=== PATIENT | male | born 1955 | race Caucasian/White ===

== ENCOUNTER 2018-08-14 11:38 | Emergency (ER) | payer MEDICAID ==
[~2018-08-14] VITALS: Ht 170.2 cm; Wt 73.0 kg
[2018-08-14 12:05] VITALS: BP 114/79
== END 2018-08-14 13:04 | disposition left against medical advice (07) ==
LOC: ER 11:38
DX: Z53.21 Procedure and treatment not carried out due to patient leaving prior to being seen by health care provider (principal); R07.9 Chest pain, unspecified
CPT/HCPCS: 93005

== ENCOUNTER 2021-03-18 11:47 | Inpatient (IN) | payer MEDICAID, OTHER ==
[~2021-03-18] VITALS: Ht 165.1 cm; Wt 72.6 kg
[2021-03-18] MEDS ORDERED: PANTOPRAZOLE 80 MG in SODIUM CHLORIDE 0.9% 100 ML IV STA (12:05)
[2021-03-18] MEDS ORDERED: PANTOPRAZOLE SODIUM 40 MG/VIAL IV STA (12:05)
[2021-03-18] MEDS ORDERED: SODIUM CHLORIDE 0.9% 1000ML BAG (SEPSIS BOLUS) IV ONE (12:15)
[2021-03-18] MEDS ORDERED: ONDANSETRON HCL 4MG/2ML INJ IV ONE (12:30)
[2021-03-18 12:54] LABS: BASOPHILS % 0.7 % (0.0-2.0); HEMATOCRIT. 26.6 % (42.0-52.0); LYMPHOCYTES % 11.9 % (20.0-50.0); MEAN CORPUSCULAR HEMOGLOBIN 31.2 pg (28.0-32.0); MEAN CORPUSCULAR VOLUME 92.6 fL (80.0-94.0); MONOCYTES % 5.6 % (2.0-8.0); NEUTROPHILS % 81.8 % (40.0-76.0); PLATELET 222 x1000/uL (130-400); RED BLOOD CELL COUNT 2.88 mill/uL (4.7-6.1); RED CELL DISTRIBUTION WIDTH 15.2 % (11.6-14.6)
[2021-03-18 12:56] LABS: CHLORIDE 113 mEq/L (98-107)
[2021-03-18 13:01] LABS: INR 1.1; PROTHROMBIN TIME 11.8 sec (9.6-11.0)
[2021-03-18] MEDS ORDERED: MORPHINE SULFATE 2 MG/ML CPJ (NOT FOR IM USE) IV ONE (13:15)
[2021-03-18] MEDS ORDERED: ONDANSETRON HCL 4MG/2ML INJ IV PRN (15:00)
[2021-03-18 15:30] VITALS: BP 116/70
[2021-03-18 16:00] VITALS: BP 116/70
[2021-03-18] MEDS ORDERED: INFLUENZA VACCINE 05/PF 0.5 ML SYRINGE IM ONE (18:00)
[2021-03-18] MEDS ORDERED: PNEUMOCOCCAL 23-VAL P-SAC VAC 0.5 ML IM ONE (18:00)
[2021-03-18] MEDS: METOCLOPRAMIDE HCL 10MG/2ML VIAL IV SCH (18:27)
[2021-03-18] MEDS: SODIUM CHLORIDE 0.9% 1,000 ML IV SCH (18:27)
[2021-03-18 20:00] VITALS: BP 102/66
[2021-03-18 20:50] LABS: HEMOGLOBIN 7.7 g/dL (14.0-18.0)
[2021-03-18 20:58] LABS: TOTAL IRON BINDING CAPACITY 316 ug/dL (250-450)
[2021-03-18 21:15] LABS: FERRITIN 11 ng/mL (22-322)
[2021-03-18 21:26] LABS: VITAMIN B12 SERUM 338 pg/mL (211-911)
[2021-03-18 22:00] VITALS: BP 96/42
[2021-03-18] MEDS: PANTOPRAZOLE SODIUM 40 MG/VIAL IV SCH (22:43)
[2021-03-18] MEDS: ACETAMINOPHEN 325MG TABLET PO PRN (22:44)
[2021-03-19] VITALS (18 sets, daily range): BP systolic 88–117; BP diastolic 46–71
[2021-03-19] MEDS: SODIUM CHLORIDE 0.9% 1,000 ML IV SCH ×2 (03:00→13:00)
[2021-03-19] MEDS ORDERED: ATOR-2 PO (06:59)
[2021-03-19] MEDS ORDERED: ASPI-1497 PO (06:59)
[2021-03-19] MEDS ORDERED: APIX5TAB PO (06:59)
[2021-03-19] MEDS ORDERED: DOXA4TAB3 PO (06:59)
[2021-03-19] MEDS: METOCLOPRAMIDE HCL 10MG/2ML VIAL IV SCH ×5 (07:59→23:25)
[2021-03-19 08:02] LABS: EOSINOPHILS % 1.1 % (0.0-5.0); HEMATOCRIT. 28.5 % (42.0-52.0); HEMOGLOBIN. 9.6 g/dL (14.0-18.0); LYMPHOCYTES % 22.3 % (20.0-50.0); MEAN CORPUSCULAR HEMOGLOBIN 30.8 pg (28.0-32.0); MEAN CORPUSCULAR VOLUME 91.5 fL (80.0-94.0); MEAN PLATELET VOLUME 7.5 fl (7.4-10.4); MONOCYTES % 10.5 % (2.0-8.0); NEUTROPHILS % 65.1 % (40.0-76.0); PLATELET 175 x1000/uL (130-400); RED BLOOD CELL COUNT 3.11 mill/uL (4.7-6.1); RED CELL DISTRIBUTION WIDTH 15.6 % (11.6-14.6)
[2021-03-19] MEDS: PANTOPRAZOLE SODIUM 40 MG/VIAL IV SCH ×2 (08:21→21:08)
[2021-03-19 08:22] LABS: CHLORIDE 113 mEq/L (98-107)
[2021-03-19] MEDS ORDERED: MIDAZOLAM HCL 5 MG/5 ML VIAL ONE ×2 (12:42→12:43)
[2021-03-19] MEDS ORDERED: FENTANYL CITRATE/PF 50MCG/ML 2ML VIAL ONE (12:42)
[2021-03-19] MEDS ORDERED: MIDAZOLAM HCL 2 MG/2 ML VIAL IV PRN (13:04)
[2021-03-19] MEDS ORDERED: DIAZEPAM 5 MG/ML 2ML CPJ IV PRN (13:07)
[2021-03-19] MEDS ORDERED: DIAZEPAM 5 MG/ML 2ML CPJ ONE (13:15)
[2021-03-19] MEDS: SUCRALFATE 1 G/10 ML UDC PO SCH ×2 (15:53→21:08)
[2021-03-19] MEDS: ACETAMINOPHEN 325MG TABLET PO PRN (23:32)
[2021-03-20] VITALS (10 sets, daily range): BP systolic 91–112; BP diastolic 45–71
[2021-03-20] MEDS: METOCLOPRAMIDE HCL 10MG/2ML VIAL IV SCH ×3 (06:01→16:57)
[2021-03-20] MEDS: SUCRALFATE 1 G/10 ML UDC PO SCH ×4 (06:01→21:04)
[2021-03-20] MEDS: PANTOPRAZOLE SODIUM 40 MG/VIAL IV SCH ×2 (08:04→21:05)
[2021-03-20 09:07] LABS: FOLATE HEMATOCRIT 23.8 % (37.5-51.0)
[2021-03-20] MEDS: ACETAMINOPHEN 325MG TABLET PO PRN (10:25)
[2021-03-20 14:50] LABS: BASOPHILS % 0.7 % (0.0-2.0); EOSINOPHILS % 1.1 % (0.0-5.0); HEMATOCRIT. 27.5 % (42.0-52.0); HEMOGLOBIN. 9.7 g/dL (14.0-18.0); LYMPHOCYTES % 19.2 % (20.0-50.0); MEAN PLATELET VOLUME 7.3 fl (7.4-10.4); MONOCYTES % 8.3 % (2.0-8.0); NEUTROPHILS % 70.7 % (40.0-76.0); PLATELET 178 x1000/uL (130-400); RED BLOOD CELL COUNT 3.02 mill/uL (4.7-6.1); RED CELL DISTRIBUTION WIDTH 15.1 % (11.6-14.6)
[2021-03-20 17:06] LABS: FOLATE RBC 1672 ng/mL (>498)
[2021-03-21] VITALS: BP 105/68
[2021-03-21] MEDS: METOCLOPRAMIDE HCL 10MG/2ML VIAL IV SCH ×2 (00:23→05:28)
[2021-03-21 04:00] VITALS: BP 92/50
[2021-03-21] MEDS: ACETAMINOPHEN 325MG TABLET PO PRN (05:28)
[2021-03-21 06:00] VITALS: BP 108/71
[2021-03-21] MEDS: SUCRALFATE 1 G/10 ML UDC PO SCH (06:31)
[2021-03-21 08:00] VITALS: BP 111/68
[2021-03-21] MEDS: PANTOPRAZOLE SODIUM 40 MG/VIAL IV SCH (08:25)
[2021-03-21 09:47] VITALS: BP 111/68
== END 2021-03-21 11:06 | disposition home or self-care (01) | DRG 241 ==
LOC: ER 11:47 → EDBEDREQTM 13:02 → 3WST 13:51 → EDBEDREQTM 13:54 → EDBEDREQ 13:54 → ENRESERV 14:44
PROVIDERS: ADMIT Internal Medicine; ATTEND Internal Medicine
PROC: 30233N1 Transfusion of Nonautologous Red Blood Cells into Peripheral Vein, Percutaneous Approach (ICD-10-PCS; principal; 2021-03-19)
PROC: 0DB78ZX Excision of Stomach, Pylorus, Via Natural or Artificial Opening Endoscopic, Diagnostic (ICD-10-PCS; 2021-03-19)
DX: K29.71 Gastritis, unspecified, with bleeding (principal); E44.0 Moderate protein-calorie malnutrition; E87.8 Other disorders of electrolyte and fluid balance, not elsewhere classified; K25.4 Chronic or unspecified gastric ulcer with hemorrhage; E78.00 Pure hypercholesterolemia, unspecified; E78.5 Hyperlipidemia, unspecified; I10 Essential (primary) hypertension; D64.9 Anemia, unspecified; I25.10 Atherosclerotic heart disease of native coronary artery without angina pectoris; Z20.822 Contact with and (suspected) exposure to COVID-19; N40.0 Benign prostatic hyperplasia without lower urinary tract symptoms; Z86.718 Personal history of other venous thrombosis and embolism; Z95.0 Presence of cardiac pacemaker; Z68.26 Body mass index [BMI] 26.0-26.9, adult
CPT/HCPCS: 36415; 71045; 74176; 80048; 80053; 82607; 82728; 82747; 83540; 83550; 83605; 85014; 85018; 85025; 85044; 86850; 86900; 86920; 87426; 88305; 88312; 88313; 90686; 90732; 93970; 93971; 99291; C9113; J2250; J2405; J2765; J3010; J7030; J7050; P9016